=== PATIENT | male | born 2000 | race Hispanic/Latino ===

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

== ENCOUNTER 2022-02-20 15:24 | Emergency (ER) | payer BC ==
--- OUTSIDE RECORDS SUMMARY | 2022-02-20 15:27 | XMS REPORT | Continuity of Care Document ---
:2000 Author Organization [facility] t Address [address] [place] [address] Care Team Providers Name Role Phone SYSTEM, PCP NOT IN Primary Care Physician Unavailable Estee Davis MD Attending Clinician ESTEE DAVIS Attending Clinician Unavailable Payers Payer Name Policy Type Policy Number Effective Date Expiration Date S ource Problems Condition Condition Condition Status Onset Resolution Last Treating Co mments Source Name Details Category Date Date Treatment Clinician Date No known No known Disease Unive rs active active ity of problems problems [facility] Allergies, Adverse Reactions, Alerts Allergy Allergy Status Severity Reaction(s) Onset Inactive Treating Comm ents Source Name Type Date Date Clinician NO KNOWN Drug Active Univers ALLERGIE Class ity of S [facility] Social History Social Habit Start Date Stop Date Quantity Comments Source Alcohol intake 2022-02-15 2022-02-15 Lifetime University of 00:00:00 00:00:00 non-drinker [facility] [place] Tobacco use and 2021-06-28 2021-06-28 Smokeless tobacco Un iversity of exposure 00:00:00 00:00:00 non-user [facility] Sex Assigned At [birth year] Universit y of 00:00:00 00:00:00 [facility] Smoking Status Start Date Stop Date Source Never smoked tobacco [facility] Medications Ordered Filled Start Stop Current Ordering Indication Dosage Frequency Signature Comments Components Source Medication Medication Date Date Medication? Clinician (SIG) Name Name cefTRIAXone 2021- No [id number] 500mg Univers (ROCEPHIN) 02-15 ity of injection 23:15: 22:15 [place] 500 mg 00 :00 Medical [place] cefTRIAXone 2021- No [id number] 500mg 500 mg, Univers (ROCEPHIN) 02-15 Intramuscu it y of injection 23:15: 22:15 [place], ONCE, [place] 500 mg 00 :00 1 dose, On Medical Sat Branch 02/15/22 at 1815, TANA
Re ason for Anti-Infec tive: Empiric Therapy for Suspected Infection< br>Empiric Therapy Site: Urine
D uration of therapy: 72 hours doxycycline 2021- Yes [id number] 100mg Take 1 Univers hyclate 100 02-15 tablet by it y of mg tablet 00:00: 04:59 mouth in Yusuf as 00 :00 the Medical morning Branch and 1 tablet in the evening. Do all this for 10 days. Vital Signs Vital Name Observation Time Observation Value Comments Source Systolic blood 2022-02-15 21:52:00 125 mm[Hg] Univer sity of pressure [facility] Diastolic blood 2022-02-15 21:52:00 69 mm[Hg] [facility] 2022-02-15 21:52:00 52 /min [facility] Body temperature 2022-02-15 21:52:00 36.94 [facility] Respiratory rate 2022-02-15 21:52:00 18 /min [facility] Body height 2022-02-15 21:52:00 185.4 cm [facility] Body weight 2022-02-15 21:52:00 70.308 kg [facility] BMI 2022-02-15 21:52:00 20.45 kg/m2 [facility] Oxygen saturation in 2022-02-15 21:52:00 98 /min [facility] blood by [facility] Pulse oximetry Branch Procedures This patient has no known procedures. Encounters Start End Encounter Admission Attending Care Care Encounter Source Date/Time Date/Time Type Type Clinicians Facility Department ID 2022-02-20 Outpatient [facility] [id number] Common 13:29:02 Spirit - [facility] 2022-02-15 2022-02-15 Urgent Susan [facility] [id number] Univers 16:40:00 17:04:43 Care [facility] [id number] it y of [place] [id number] Yusuf as LASHONDA?BLEA [id number] [address] MEDICAL OFFICE BUILDING 2022-02-15 2022-02-15 Outpatient R [facility] [id number] Univers 16:40:00 17:04:43 ESTEE [facility] Results This patient has no known results.
[2022-02-20] MEDS ORDERED: MORPHINE 4 MG/ML SYR ONE (16:03)
[2022-02-20] MEDS ORDERED: NA CHLORIDE 0.9% 1,000 ML ONE (16:03)
[2022-02-20] MEDS ORDERED: ONDANSETRON 4 MG/2 ML VIAL ONE (16:03)
[2022-02-20 16:14] LABS: Absolute Lymphocytes (CBC) 2.5 K/uL (0.7-4.9); Hematocrit 44.9 % (39.6-49.0); Lymphocytes % 38.6 % (15.3-44.8); MCV 94.9 fL (80-100); MPV 9.3 fL (7.6-11.3); RBC Red Blood Cell Count 4.73 M/uL (4.33-5.43)
[2022-02-20 16:28] LABS: Albumin 4.1 g/dL (3.4-5.0); Bilirubin Total 0.8 mg/dL (0.2-1.0); Potassium 3.7 mmol/L (3.5-5.1); Protein, Total 7.6 g/dL (6.4-8.2)
[2022-02-20 17:04] LABS: Urine Blood Negative (Negative); Urine Glucose Negative (Negative); Urine Protein Negative (Negative); Urine Specific Gravity 1.015 (1.005-1.030); Urine pH 6.5 (5.0-7.0)
[2022-02-20 17:17] LABS: Urine Bacteria <20 /HPF (<20); Urine RBC <5 /HPF (None Seen)
--- NOTE | 2022-02-20 18:24 | RAD REPORT ---
EXAM DESCRIPTION: CT - Abdomen Pelvis W Contrast - 02/20/2022 6:02 pm CLINICAL HISTORY: Abdominal pain. Right lower quadrant pain COMPARISON: 2015 TECHNIQUE: Computed axial tomography of the abdomen and pelvis was obtained. 100 cc Isovue-300 is ad ministered intravenously. Oral contrast was given. All CT scans are performed using dose optimization technique as appropriate and may include automated exposure control or mA/KV adjustment according to patient size. FINDINGS: The liver, spleen, pancreas, adrenals and kidneys appear unremarkable. The appendix is normal caliber. There is no evidence of diverticulitis Tiny umbilical hernia IMPRESSION: No acute abnormality is displayed
--- NOTE | 2022-02-20 19:45 | RAD REPORT ---
EXAM DESCRIPTION: US - Scrotum Testicles - 02/20/2022 7:34 pm CLINICAL HISTORY: Testicular pain COMPARISON: None FINDINGS: Right testicle measures 3.8 x 1.8 x 2.5 centimeters. Echotexture is homogeneous. Normal bl ood flow Left testicle measures 3.9 x 1.5 x 2.5 centimeters. Echotexture is homogeneous. Normal blood flow The epididymides are normal in size and echotexture. Normal blood flow is seen. 6 millimeter left spermatocele IMPRESSION: 6 millimeter left spermatocele
--- NOTE | 2022-02-20 19:57 | ER ---
Nurse's Notes [facility] Name: Shahid Sheehan Age: 21 yrs Sex: Male : 2000 Arrival Date: 02/20/2022 Time: 15:26 Bed 8 Private MD: Diagnosis: Right lower quadrant abdominal tenderness Presentation: 02/20 15:44 Chief complaint: Patient states: RLQ pain x 2 week ago that is intermittent and reports aa5 he had CT scan scheduled for today per Dr. Park (Urology) but just finished oral contrast at 1528. Coronavirus screen: At this time, the client does not indicate any symptoms associated with coronavirus-19. Ebola Screen: No symptoms or risks identified at this time. Initial Sepsis Screen: Does the patient meet any 2 criteria? No. Patient's initial sepsis screen is negative. Does the patient have a suspected source of infection? No. Patient's initial sepsis screen is negative. Risk Assessment: Do you want to hurt yourself or someone else? Patient reports no desire to harm self or others. Onset of symptoms was January 2022. 15:44 Acuity: GROVER 3 aa5 15:44 Method Of Arrival: Ambulatory aa5 Historical: - Allergies: 15:46 NKDA; aa5 - Home Meds: 15:46 None [Active]; aa5 - PMHx: 15:46 None; aa5 - PSHx: 15:46 None; aa5 - Immunization history:: Adult Immunizations unknown. - Social history:: Smoking status: Patient denies any tobacco usage or history of. Screenin:05 Abuse screen: Denies threats or abuse. Denies injuries from another. Nutritional ld1 screening: No deficits noted. Tuberculosis screening: No symptoms or risk factors identified. Fall Risk None identified. Assessment: 16:05 General: Appears in no apparent distress. uncomfortable, Behavior is calm, cooperative, ld1 appropriate for age. Pain: Complains of pain in umbilical area and right lower quadrant Pain does not radiate. Pain currently is 9 out of 10 on a pain scale. Quality of pain is described as sharp, shooting, throbbing, Pain began gradually, Is continuous. Neuro: Level of Consciousness is awake, alert, obeys commands, Oriented to person, place, time, situation. Cardiovascular: Capillary refill < 3 seconds Patient's skin is warm and dry. Rhythm is sinus bradycardia. Respiratory: Airway is patent Respiratory effort is even, unlabored. GI: Abdomen is flat, non-distended, Bowel sounds present X 4 quads. Abd is soft Abdomen is tender to palpation in right lower quadrant. : No signs and/or symptoms were reported regarding the genitourinary system. EENT: No signs and/or symptoms were reported regarding the EENT system. Derm: No signs and/or symptoms reported regarding the dermatologic system. Musculoskeletal: No signs and/or symptoms reported regarding the musculoskeletal system. 20:15 Reassessment: Patient appears in no apparent distress at this time. Patient states kl feeling better. General:. Vital Signs: 15:44 BP 123 / 83; Pulse 56; Resp 16 S; Temp 97.0(TE); Pulse Ox 100% on R/A; Weight 70.31 kg aa5 (R); Height 6 ft. 1 in. (185.42 cm) (R); 16:05 BP 127 / 75; Pulse 57; Resp 18; Pulse Ox 98% on R/A; Pain 9/10; ld1 17:05 BP 136 / 96; Pulse 56; Resp 19; Pulse Ox 99% on R/A; Pain 2/10; ld1 18:11 BP 138 / 67; Pulse 55; Resp 18; Pulse Ox 97% on R/A; ld1 20:15 BP 113 / 71; Pulse 45; Resp 18; Pulse Ox 94% ; Pain 3/10; kl 15:44 Body Mass Index 20.45 (70.31 kg, 185.42 cm) aa5 ED Course: 15:26 Patient arrived in ED. am2 15:33 Loc Silva PA is PHCP. cp 15:33 Flaco García DO is Attending Physician. cp 15:44 Arm band placed on. aa5 15:46 Triage completed. aa5 16:05 Sandra Dukes, MOHINDER is Primary Nurse. ld1 16:05 Patient has correct armband on for positive identification. Placed in gown. Bed in low ld1 position. Call light in reach. Side rails up X2. traffic monitor specialist on. Pulse ox on. NIBP on. Door closed. Noise minimized. Warm blanket given. 16:05 No provider procedures requiring assistance completed. Inserted saline lock: 20 gauge ld1 in right antecubital area, using aseptic technique. Blood collected. 17:04 Urine Microscopic Only Sent. ld1 18:04 CT Abd/Pelvis - PO and IV Contrast In Process Unspecified. EDMS 19:35 US Scrotum Testicles In Process Unspecified. EDMS 19:55 Patrick Park MD is Referral Physician. cp 20:15 IV discontinued, intact, bleeding controlled, No redness/swelling at site. Pressure kl dressing applied. Administered Medications: 16:00 Drug: NS 0.9% 1000 ml Route: IV; Rate: 1 bolus; Site: right antecubital; ld1 17:05 Follow up: Response: No adverse reaction; IV Status: Completed infusion; IV Intake: ld1 1000ml 16:00 Drug: Zofran (Ondansetron) 4 mg Route: IVP; Site: right antecubital; ld1 17:06 Follow up: Response: No adverse reaction ld1 16:00 Drug: morphine 4 mg Route: IVP; Infused Over: 4 mins; Site: right antecubital; ld1 17:05 Follow up: Response: Pain is decreased; RASS: Alert and Calm (0) ld1 20:08 Drug: Ketorolac 15 mg Route: IVP; Site: right antecubital; kl 20:14 Follow up: Response: No adverse reaction; Marked relief of symptoms kl Medication: 16:05 VIS not applicable for this client. ld1 Intake: 17:05 IV: 1000ml; Total: 1000ml. ld1 Outcome: 19:56 Discharge ordered by . cp 20:19 Patient left the ED. kl Signatures: Dispatcher [employer] Ramya Zafar RN RN kl Calderon, Audri RN RN aa5 Loc Silva PA PA Sara Archer am2 Sandra Dukes RN RN ld1
--- NOTE | 2022-02-20 19:57 | EDPHYS ---
Physician Documentation [facility] Name: Shahid Sheehan Age: 21 yrs Sex: Male : 2000 Arrival Date: 02/20/2022 Time: 15:26 Bed 8 Private MD: ED Physician Flaco García HPI: 02/20 15:48 This 21 yrs old Male presents to ER via Ambulatory with complaints of cp Abdominal Pain - RLQ. 15:48 The patient presents with abdominal pain right lower quadrant. Onset: The cp symptoms/episode began/occurred 2 week(s) ago. 15:48 The symptoms radiate to right back. Associated signs and symptoms: Pertinent negatives: cp nausea and vomiting, constipation, diarrhea, dysuria, fever. The symptoms are described as intermittent. Modifying factors: the symptoms are aggravated by nothing. 15:48 Patient reports he was here at the hospital for scheduled CT of abdomen/pelvis ordered cp by DR Park, when RLQ abdomen returned and became persistent. Patient was referred to ED for evaluation. Historical: - Allergies: 15:46 NKDA; aa5 - Home Meds: 15:46 None [Active]; aa5 - PMHx: 15:46 None; aa5 - PSHx: 15:46 None; aa5 - Immunization history:: Adult Immunizations unknown. - Social history:: Smoking status: Patient denies any tobacco usage or history of. ROS: 15:55 Constitutional: Negative for body aches, chills, fever, poor PO intake. cp 15:55 Eyes: Negative for injury, pain, redness, and discharge. cp 15:55 ENT: Negative for drainage from ear(s), ear pain, sore throat, difficulty swallowing, difficulty handling secretions. 15:55 Cardiovascular: Negative for chest pain, edema, palpitations. 15:55 Respiratory: Negative for cough, shortness of breath, wheezing. 15:55 Abdomen/GI: Positive for abdominal pain, of the right lower quadrant, Negative for vomiting, diarrhea, constipation. 15:55 Back: Positive for radiated pain, Negative for injury or acute deformity. 15:55 : Negative for urinary symptoms, testicular pain 15:55 Neuro: Negative for altered mental status, headache, weakness. 15:55 All other systems are negative. Exam: 16:00 Constitutional: The patient appears in no acute distress, alert, awake, non-toxic, well cp developed, well nourished, uncomfortable. 16:00 Head/Face: Normocephalic, atraumatic. cp 16:00 Eyes: Periorbital structures: appear normal, Conjunctiva: normal, no exudate, no injection, Sclera: no appreciated abnormality, Lids and lashes: appear normal, bilaterally. 16:00 ENT: External ear(s): are unremarkable, Nose: is normal, Mouth: Lips: moist, Oral mucosa: normal, Posterior pharynx: Airway: no evidence of obstruction, patent. 16:00 Chest/axilla: Inspection: normal, Palpation: is normal, no crepitus, no tenderness. 16:00 Cardiovascular: Rate: normal, Rhythm: regular. 16:00 Respiratory: the patient does not display signs of respiratory distress, Respirations: normal, no use of accessory muscles, no retractions, labored breathing, is not present, Breath sounds: are clear throughout, no decreased breath sounds, no stridor, no wheezing. 16:00 Abdomen/GI: Inspection: abdomen appears normal, Bowel sounds: active, all quadrants, Palpation: soft, in all quadrants, severe abdominal tenderness, in the right lower quadrant, rebound tenderness, is not appreciated, voluntary guarding, is elicited in the right lower quadrant. 16:00 Back: CVA tenderness, is absent. 16:00 : Male external genitalia: Patient is not circumisioned. swelling: is not appreciated, tenderness, of the right testicle is noted, that is mild. 16:00 Skin: no rash present. Vital Signs: 15:44 BP 123 / 83; Pulse 56; Resp 16 S; Temp 97.0(TE); Pulse Ox 100% on R/A; Weight 70.31 kg aa5 (R); Height 6 ft. 1 in. (185.42 cm) (R); 16:05 BP 127 / 75; Pulse 57; Resp 18; Pulse Ox 98% on R/A; Pain 9/10; ld1 17:05 BP 136 / 96; Pulse 56; Resp 19; Pulse Ox 99% on R/A; Pain 2/10; ld1 18:11 BP 138 / 67; Pulse 55; Resp 18; Pulse Ox 97% on R/A; ld1 20:15 BP 113 / 71; Pulse 45; Resp 18; Pulse Ox 94% ; Pain 3/10; kl 15:44 Body Mass Index 20.45 (70.31 kg, 185.42 cm) aa5 MDM: 15:49 Patient medically screened. cp 19:55 Data reviewed: vital signs, nurses notes, lab test result(s), radiologic studies, CT cp scan, ultrasound. 19:55 Counseling: I had a detailed discussion with the patient and/or guardian regarding: the cp historical points, exam findings, and any diagnostic results supporting the discharge/admit diagnosis, lab results, radiology results, the need for outpatient follow up, a urologist, to return to the emergency department if symptoms worsen or persist or if there are any questions or concerns that arise at home. Response to treatment: the patient's symptoms have markedly improved after treatment, and as a result, I will discharge patient. Special discussion: Based on the patient's Hx, exam, and Dx evaluation, there is no indication for emergent surgery or inpatient Tx. It is understood by the patient/guardian that if the Sx's persist or worsen they need to return immediately for re-evaluation. 02/20 15:47 Order name: CBC with Diff; Complete Time: 16:34 cp 02/20 16:34 Interpretation: Normal except: EOSINOPHIL % 6.6. cp 02/20 15:47 Order name: CMP; Complete Time: 16:34 cp 02/20 15:47 Order name: Lipase; Complete Time: 16:34 cp 02/20 15:47 Order name: Urine Microscopic Only; Complete Time: 17:22 cp 02/20 17:22 Interpretation: Reviewed. 02/20 15:47 Order name: CT Abd/Pelvis - PO and IV Contrast; Complete Time: 18:40 cp 02/20 18:40 Interpretation: Report reviewed. 02/20 17:05 Order name: Urine Dipstick-Ancillary; Complete Time: 17:22 EDMS 02/20 17:22 Interpretation: Reviewed. 02/20 15:47 Order name: IV Saline Lock; Complete Time: 16:07 cp 02/20 15:47 Order name: Labs collected and sent; Complete Time: 16:07 cp 02/20 16:35 Order name: Urine Dipstick-Ancillary (obtain specimen); Complete Time: 17:04 02/20 18:55 Order name: US Scrotum Testicles; Complete Time: 19:54 cp 02/20 19:54 Interpretation: Report reviewed. cp Administered Medications: 16:00 Drug: NS 0.9% 1000 ml Route: IV; Rate: 1 bolus; Site: right antecubital; ld1 17:05 Follow up: Response: No adverse reaction; IV Status: Completed infusion; IV Intake: ld1 1000ml 16:00 Drug: Zofran (Ondansetron) 4 mg Route: IVP; Site: right antecubital; ld1 17:06 Follow up: Response: No adverse reaction ld1 16:00 Drug: morphine 4 mg Route: IVP; Infused Over: 4 mins; Site: right antecubital; ld1 17:05 Follow up: Response: Pain is decreased; RASS: Alert and Calm (0) ld1 20:08 Drug: Ketorolac 15 mg Route: IVP; Site: right antecubital; kl 20:14 Follow up: Response: No adverse reaction; Marked relief of symptoms kl Disposition: 02/21 11:24 Co-signature as Attending Physician, Flaco HATCH was immediately available on-site ms3 in the Emergency Department for consultation in the care of the patient. . Disposition Summary: 02/20/22 19:56 Discharge Ordered Location: Home cp Problem: new cp Symptoms: have improved cp Condition: Stable cp Diagnosis - Right lower quadrant abdominal tenderness cp Followup: cp - With: Patrick Park MD - When: 1 - 2 days - Reason: Recheck today's complaints Discharge Instructions: - Discharge Summary Sheet cp - Abdominal Pain, Adult cp Forms: - Medication Reconciliation Form cp - Thank You Letter cp - Antibiotic Education cp - Prescription Opioid Use cp Prescriptions: - Ibuprofen 800 mg Oral Tablet - take 1 tablet by ORAL route every 8 hours As needed take with food; 30 tablet; cp Refills: 0, Product Selection Permitted Signatures: Dispatcher [employer] Ramya Zafar RN RN Erna Castrejon RN RN aa5 Loc Silva PA PA cp Sims, Marcus, DO DO ms3 Sandra Dukes RN RN ld1
[2022-02-20] MEDS ORDERED: KETOROLAC 30 MG/ML INJ ONE (20:12)
[2022-02-20 23:24] VITALS: TEMP 97
[2022-02-20 23:34] VITALS: BP 113/71; O2SAT 94
== END 2022-02-20 20:19 | disposition home or self-care (01) ==
LOC: ER 15:24
DX: R10.813 Right lower quadrant abdominal tenderness (principal)
CPT/HCPCS: 96361; 85025; 36415; 83690; 80053; 74177; 76870; 96375; 96374; 99284; Q9967; J7030; J2405; 81003; 81015